=== PATIENT | male | born 1995 | race Caucasian/White ===

== ENCOUNTER → 2017-09-06 | Outpatient (CLI) | payer BC ==
--- NOTE | 2017-09-07 09:49 | PCVCIMAG ---
APPROVED REPORT Exam: Stress Echocardiogram Indication: Chest Pain, Stress Nurse: Melita Barclay RN Status: routine Ht: 5 ft 10 in HR: 82 bpm BP: 100/70 mmHg Rhythm: NSR Procedure The patient underwent an Exercise Stress Test using the Adi Protocol. Blood pressure, heart rate, and EKG were monitored. An Echocardiogram was performed by mri technician in four stages in quad fashion. At peak stress, four selected images were obtained and placed side by side with resting images for comparison. Stress Test Details Stress Test: Exercise stress testing was performed using a Adi protocol. HR Resting HR: 82 bpmMax Heart Rate (APMHR): 198 bpm Max HR Achieved: 187 bpmTarget HR (85% APMHR): 168 bpm % of APMHR: 94 HR response to stress: Normal HR response to stress BP Resting BP: 100/70 mmHg Max BP: 148/70 mmHg ECG Resting ECG: Sinus Rhythm Stress ECG: Sinus Rhythm ST Change: Non-ischemic Clinical Reason for Termination: Maximal effort Exercise duration: 15 min sec Highest Stage Achieved: Stage 6: 5.5 mph at 20% grade. Exercise capacity: 17.20 METs Overall Exercise Capacity for Age: Good Pre-Stress Echo The resting Echocardiogram showed normal left ventricular contractility with an estimated Ejection Fraction of about 55-60%. Normal wall motion in all segments on baseline images. Post-Stress Echo The stress Echocardiogram showed normal left ventricular contractility with an estimated Ejection Fraction of about 60-65%. Normal augmentation of wall motion in all segments on post stress images. Clinical No clinical or ECG evidence for ischemia. Conclusion Clinical Response: Non-ischemic Exercise Capacity: Superior Stress ECG Response: Non-ischemic Stress Echo Images: Non-ischemic No clinical, EKG or echocardiographic evidence for ischemia. Other Information Study Quality: Good <Conclusion> No clinical, EKG or echocardiographic evidence for ischemia.
== END | disposition home or self-care (01) ==
LOC: PCVCIMAG 14:20
PROVIDERS: ATTEND Internal Medicine Cardiovascular Disease
DX: R07.9 Chest pain, unspecified (principal)
CPT/HCPCS: 93325; 93351